=== PATIENT | female | born 2000 | race Two or more races ===

== ENCOUNTER 2023-09-16 03:29 | Emergency (ER) | payer OTHER ==
[2023-09-16 03:47] VITALS: BP 127/88; O2SAT 98
[2023-09-16 03:59] LABS: BASOPHILS # (AUTO) 0.1 10^3/uL (0.0-0.1); BASOPHILS % (AUTO) 0.6 %; EOSINOPHILS # (AUTO) 0.6 10^3/uL (0.0-0.7); EOSINOPHILS % (AUTO) 5.3 %; HCT - HEMATOCRIT 40.5 % (37.0-47.0); HGB - HEMOGLOBIN 12.8 g/dL (12.0-16.0); LYMPHOCYTES # (AUTO) 4.8 10^3/uL (1.5-3.5); LYMPHOCYTES % (AUTO) 41.2 %; MEAN CORPUSCULAR HEMOGLOBIN 26.9 pg (27.0-31.0); MEAN CORPUSCULAR HGB CONC 31.6 g/dL (32.0-36.0); MEAN CORPUSCULAR VOLUME 85.1 fL (81.0-99.0); MEAN PLATELET VOLUME 10.9 fL (7.9-10.8); MONOCYTES # (AUTO) 0.5 10^3/uL (0.0-1.0); MONOCYTES % (AUTO) 4.6 %; NEUTROPHILS # (AUTO) 5.6 10^3/uL (1.5-6.6); NEUTROPHILS % (AUTO) 48.1 %; PLT - PLATELET COUNT 291 10^3/uL (130-450); RED BLOOD COUNT 4.76 10^6/uL (4.20-5.40); RED CELL DISTRIBUTION WIDTH 14.3 % (12.0-15.0); WHITE BLOOD COUNT 11.6 x10^3/uL (4.8-10.8)
[2023-09-16 04:01] LABS: BILIRUBIN,URINE NEGATIVE (NEGATIVE); GLUCOSE, URINE (UA) NEGATIVE (NEGATIVE); KETONES,URINE (UA) NEGATIVE (NEGATIVE); LEUKOCYTE ESTERASE, URINE NEGATIVE (NEGATIVE); NITRITE,URINE NEGATIVE (NEGATIVE); OCCULT BLOOD,URINE SMALL (NEGATIVE); PH,URINE 6.5 PH (5.0-7.5); PROTEIN,URINE 30 mg/dL (NEGATIVE); UROBILINOGEN,URINE 0.2 (NORMAL) E.U./dL (NORMAL)
[2023-09-16 04:02] LABS: CLARITY,URINE CLEAR (CLEAR)
--- NOTE | 2023-09-16 04:02 | ED Physician Documentation ---
PD HPI ABD PAIN - Stated complaint Stated Complaint: ABD PX - Chief complaint Chief Complaint: Abd Pain - History obtained from History obtained from: Patient - Additional information Additional information: HPI from patient. Patient complains of abdominal pain, sudden onset at approximately 3 AM that woke her from sleep. She went to sleep approximately 3 hours prior feeling well. The pain is across her lower abdomen as well as epigastrium, waxing and waning without exacerbating or ameliorating factors except partial exacerbation with deep inspiration. She had a single episode of nausea and vomiting when the pain was at its most intense. Denies history of similar symptoms. Denies fever. Denies chance of . No past abdominal surgical history. Denies dysuria, urinary frequency. Review of Systems Constitutional: reports: Sweats. denies: Fever, Chills Cardiac: reports: Reviewed and negative Respiratory: reports: Reviewed and negative GI: reports: Abdominal Pain, Nausea, Vomiting. denies: Abdominal Swelling, Constipation, Diarrhea, Hematemesis, Bloody / black stool : reports: Dysuria, Frequency. denies: Now [facility] PAST MEDICAL HISTORY - Past Medical History Past Medical History: No - Past Surgical History Past Surgical History: No - Present Medications Home Medications: Ambulatory Orders Medication Instructions Recorded Confirmed No Known Home Medications 09/16/23 09/16/23 - Allergies Allergies/Adverse Reactions: Allergies Allergy/AdvReac Type Severity Reaction Status Date / Time No Known Drug Allergies Allergy Verified 09/16/23 03:43 - Social History Does the pt smoke?: No Smoking Status: Never smoker Does the pt have substance abuse?: No - Immunizations Immunizations are current?: Yes - POLST Patient has POLST: No PD ED PE NORMAL - Vitals Vital signs reviewed: Yes - General General: Alert and oriented X 3, No acute distress, Well developed/nourished - HEENT HEENT: Moist mucous membranes - Cardiac Cardiac: RRR, No murmur - Respiratory Respiratory: No respiratory distress, Clear bilaterally - Abdomen Abdomen: Soft, Non distended, Other (mild-moderate TTP epigastrium and LLQ without rebound or guarding) - Back Back: No CVA TTP - Derm Derm: Normal color, Warm and dry Results - Vitals Vitals: Vital Signs - 24 hr 09/16/23 09/16/23 03:35 03:40 Temperature 36.3 C L 36.3 C L Heart Rate 101 H 101 H Respiratory 18 18 Rate Blood Pressure 127/88 H 127/88 H O2 Saturation 100 98 Oxygen O2 Source Room air - Labs Labs: Laboratory Tests 09/16/23 09/16/23 09/16/23 03:38 03:38 03:53 WBC 11.6 H RBC 4.76 Hgb 12.8 Hct 40.5 MCV 85.1 MCH 26.9 L MCHC 31.6 L RDW 14.3 Plt Count 291 MPV 10.9 H Neut # (Auto) 5.6 Lymph # (Auto) 4.8 H Menard # (Auto) 0.5 Eos # (Auto) 0.6 Baso # (Auto) 0.1 Absolute Nucleated RBC 0.00 Nucleated RBC % 0.0 Sodium Potassium Chloride Carbon Dioxide Anion Gap BUN Creatinine Estimated GFR (MDRD) Glucose Calcium Total Bilirubin AST ALT Alkaline Phosphatase Total Protein Albumin Globulin Albumin/Globulin Ratio Lipase Urine Color YELLOW Urine Clarity CLEAR Urine pH 6.5 Ur Specific [place] 1.020 Urine Protein 30 H Urine Glucose (UA) NEGATIVE Urine Ketones NEGATIVE Urine Occult Blood SMALL H Urine Nitrite NEGATIVE Urine Bilirubin NEGATIVE Urine Urobilinogen 0.2 (NORMAL) Ur Leukocyte Esterase NEGATIVE Urine RBC 0-5 Urine WBC 0-3 Ur Squamous Epith Cells FEW Squamous Urine Bacteria Rare Ur Microscopic Review INDICATED Urine Culture Comments NOT INDICATED Urine HCG, Qual NEGATIVE 09/16/23 03:53 WBC RBC Hgb Hct MCV MCH MCHC RDW Plt Count MPV Neut # (Auto) Lymph # (Auto) Menard # (Auto) Eos # (Auto) Baso # (Auto) Absolute Nucleated RBC Nucleated RBC % Sodium 137 Potassium 3.6 Chloride 104 Carbon Dioxide 25 Anion Gap 8.0 BUN 10 Creatinine 0.7 Estimated GFR (MDRD) 106 Glucose 120 H Calcium 9.6 Total Bilirubin 0.3 AST 11 ALT 10 Alkaline Phosphatase 57 Total Protein 7.4 Albumin 4.5 Globulin 2.9 Albumin/Globulin Ratio 1.6 Lipase 25 Urine Color Urine Clarity Urine pH Ur Specific [place] Urine Protein Urine Glucose (UA) Urine Ketones Urine Occult Blood Urine Nitrite Urine Bilirubin Urine Urobilinogen Ur Leukocyte Esterase Urine RBC Urine WBC Ur Squamous Epith Cells Urine Bacteria Ur Microscopic Review Urine Culture Comments Urine HCG, Qual - Rads (name of study) CT A/P with IV contrast Relevant Findings:: Prelim report reviewed, See rad report PD Medical Decision Making - ED course Complexity details: reviewed results, re-evaluated patient, considered differential, d/w patient ED course: IV established and patient is given 1 L normal saline IV as well as 30 mg IV Toradol. She subsequently said the Toradol is not adequately controlling her pain and thus I ordered 4 mg IV morphine. However, she then went to CT and, upon returning, said that the pain was much improved and declined the morphine. Mild leukocytosis (WBC 11.6) but otherwise unremarkable CBC. Normal ER abdominal panel (insignificant hyperglycemia noted with glucose 120). Small blood on urinalysis, but only on macro; normal microscopy (no red blood cells nor white blood cells). Urine hCG negative. CT A/P with IV contrast is without concerning nor diagnostic findings. The cause of her symptoms is not apparent at this time. On reevaluation, results discussed with patient. She is in NAD and reports resolution of her symptoms. Return precautions reviewed. I advised her to seek follow-up with PCP, next available appointment, for reevaluation. Departure - Departure Disposition: 01 Home, Self Care Clinical Impression: Abdominal pain Condition: Good Instructions: ED Abdominal Pain Female Non-Specific Abdominal Pain Comments: There were no concerning nor diagnostic findings on tonight's tests including the blood test, urinalysis, and the CT scan of your abdomen and pelvis. The cause of your pain is not apparent at this time. Follow-up with your primary care provider, next available appointment, for reevaluation. Discharge Date/Time: 09/16/23 05:57
[2023-09-16 04:09] LABS: BACTERIA,URINE Rare /HPF (None Seen); RBC,URINE 0-5 /HPF (0-5); SQUAMOUS EPITHELIAL CELL,UR FEW Squamous (<= Few); WBC,URINE 0-3 /HPF (0-5)
[2023-09-16 04:17] LABS: ALBUMIN 4.5 g/dL (3.2-5.5); ALBUMIN/GLOBULIN RATIO 1.6 (1.0-2.2); BILIRUBIN,TOTAL 0.3 mg/dL (0.2-1.0); CALCIUM 9.6 mg/dL (8.5-10.3); CREATININE 0.7 mg/dL (0.6-1.3); POTASSIUM 3.6 mmol/L (3.5-4.5); TOTAL PROTEIN 7.4 g/dL (6.4-8.9)
[2023-09-16] MEDS: SODIUM CHLORIDE 0.9% 1,000 ML IV STA (04:24)
[2023-09-16] MEDS: SODIUM CHLORIDE 0.9% 500 ML IV ONE (04:24)
[2023-09-16] MEDS ORDERED: iohexoL-300 100 ML VIAL ONE (04:25)
[2023-09-16] MEDS: KETOROLAC 30 MG/ML VIAL IVP STA (04:25)
[2023-09-16 04:49] LABS: HCG UR QUAL NEGATIVE
[2023-09-16] MEDS: iohexoL-300 100 ML VIAL IVP ONE (05:16)
[2023-09-16] MEDS: MORPHINE 2 MG/ML CARPUJECT IVP STA (05:27)
--- NOTE | 2023-09-16 07:42 | CT Report ---
PROCEDURE: Abdomen/Pelvis W INDICATIONS: abdominal pain, TTP (predominantly LLQ) CONTRAST: OMNI 300, 100mls TECHNIQUE: After the administration of intravenous contrast, a CT scan of the abdomen and pelvis was performed. Images were recorded and evaluated at appropriate window settings. Reformats: coronal and sagittal. F or radiation dose reduction, the following was used: automated exposure control, adjustment of mA and /or kV according to patient size. COMPARISON: None. FINDINGS: Image quality: Diagnostic. Lower chest: Unremarkable. Liver: No solid mass. Gallbladder: No radiopaque stones or wall thickening. Biliary tree: No intrahepatic or extrahepatic dilation, accounting for age. Spleen: No splenomegaly. Pancreas: No pancreatic ductal dilation. Adrenals: No adrenal nodule. Kidneys and ureters: No hydronephrosis. No renal cystic lesion which requires follow up. No solid mas s. Stomach, bowel and peritoneum: No gastric or small bowel dilation. No abnormal wall thickening. No pa thologic free fluid. Normal appendix. Lymph nodes: No central or retroperitoneal adenopathy. Vessels: No infrarenal aortic aneurysm. Patent portal vein. PELVIS Reproductive organs: Multiple bilateral follicular cysts noted in the ovaries. Uterus unremarkable. Bladder: There is mild bladder wall thickening which may potentially indicate presence of cystitis. T his is best seen on sagittal image 89 of series 6. Pelvic lymph nodes: No pelvic adenopathy by size criteria. Bones: No aggressive osseous abnormality. Other: No significant ventral or inguinal hernia. IMPRESSION: 1. Bladder findings may indicate cystitis. Recommend correlation with urinalysis. 2. Normal appendix. 3. No other potentially acute abdominal process noted. 4. Bilateral ovarian follicular cysts. Findings are concordant with preliminary interpretation provided by [facility]. Reviewed by: Rolando Cummings MD on 09/16/2023 7:41 AM PDT Approved by: Rolando Cummings MD on 09/16/2023 7:41 AM PDT Station ID: [id number]
== END 2023-09-16 05:57 | disposition home or self-care (01) ==
LOC: ED 03:29
DX: R10.9 Unspecified abdominal pain (principal); R11.2 Nausea with vomiting, unspecified
CPT/HCPCS: 36415; 74177; 80053; 81001; 81025; 83690; 85025; 96374; 99283; 99284; Q9967; 81003; 87086